=== PATIENT | male | born 1985 | race Caucasian/White ===

== ENCOUNTER → 2021-08-10 07:58 | Outpatient (CLI) | payer BC, SELFPAY ==
--- NOTE | 2021-08-11 05:42 | PFTCOMP_ITS ---
COMPLETE PULMONARY FUNCTION TEST INTERPRETATION Brief HPI: Patient is a 36 year old male, currently under the care of myself, who presents to [facility] for complete pulmonary function tests secondary to diagnosis of pulmonary nodule. Respiratory therapist reports good effort and reproducible results. Interpretation: Forced expiration spirometry shows a mild large airways obstructive ventilatory defect with an FEV1 of 88% predicted. There is a significant bronchodilator response in FEV1 by strict ATS criteria. Spirograms are of good quality and plateau slowly, indicating slowly emptying areas of the lungs. The respiratory flow volume loop shows decreased expiratory flow rates at all lung volumes consistent with airway obstruction. Lung volumes by body plethysmography show a decreased total lung capacity at 5.7 L, 78% predicted. All other lung volumes are within normal limits. Diffusion capacity by carbon monoxide is normal at 122% predicted. The airway resistance is elevated. No previous pulmonary function tests were available for review. Impression: Partially reversible mild mixed ventilatory defect with preserved diffusion capacity.
== END ==
PROVIDERS: PCP Nurse Practitioner Primary Care; Referring Provider Internal Medicine Critical Care Medicine; Visit Provider Internal Medicine Critical Care Medicine
DX: R91.1 Solitary pulmonary nodule (principal)
CPT/HCPCS: 94060; 94726; 94729

== ENCOUNTER → 2021-09-03 12:30 | Outpatient (CLI) | payer BC, SELFPAY ==
[2021-09-03 12:30] VITALS: PULSE 102; PULSE 106; PULSE 109; PULSE 84; PULSE 88; PULSE 98; O2SAT 97; O2SAT 98
--- NOTE | 2021-09-03 15:13 | PCM.PSN.6M ---
PSN 6 Minute Walk Test 6 Minute Walk Test 6 Minute Walk Test: 6 Minute Walk Test PSN:6-Minute Walk Test Start: 09/03/21 12:53 Freq: Status: Active Protocol: RESP.6MINW Document 09/03/21 12:30 [facility] (Rec: 09/03/21 12:56 [facility] [id number]) 6 Minute Walk Test Date Performed 09/03/21 Time Performed 12:30 Height 5 ft 11 in Weight: 108.862 kg Weight in Pounds 240.[address]: Dr Jeter Assistive device used: None Pre-test Oxygen Delivery Method Room Air Pulse Ox (%) 98 Pulse Rate (60-100 beats/min) 98 Dyspnea Deangelo Scale (0-10) 0 Exertion Deangelo Scale (6-20) 6 1st minute Oxygen Delivery Method Room Air Pulse Ox (%) 98 Pulse Rate (60-100 beats/min) 102 H 2nd minute Oxygen Delivery Method Room Air Pulse Ox (%) 98 Pulse Rate (60-100 beats/min) 106 H 3rd minute Oxygen Delivery Method Room Air Pulse Ox (%) 98 Pulse Rate (60-100 beats/min) 106 H 4th minute Oxygen Delivery Method Room Air Pulse Ox (%) 97 Pulse Rate (60-100 beats/min) 109 H 5th minute Oxygen Delivery Method Room Air Pulse Ox (%) 98 Pulse Rate (60-100 beats/min) 102 H 6th minute Oxygen Delivery Method Room Air Pulse Ox (%) 97 Pulse Rate (60-100 beats/min) 84 Dyspnea Deangelo Scale (0-10) 2 Exertion Deangelo Scale (6-20) 11 Post-test Oxygen Delivery Method Room Air Pulse Ox (%) 98 Pulse Rate (60-100 beats/min) 88 Full Laps Walked 22 Partial Lap, Number of Tiles Walked 19 Total Distance Walked (ft) 1317 Interpretation Interpretation: Patient was able to ambulate 1317 feet over the course of 6 minutes on room air with no assist devices or breaks. The patient experienced no significant desaturation, but did have a peak heart rate of 109 bpm. These findings are consistent with deconditioning. Recommendations Recommendations: No supplemental oxygen is indicated at this time.
== END ==
LOC: PSN 12:32
PROVIDERS: PCP Nurse Practitioner Primary Care; Referring Provider Internal Medicine Critical Care Medicine; Visit Provider Internal Medicine Critical Care Medicine
DX: R91.1 Solitary pulmonary nodule (principal)
CPT/HCPCS: 94618

== ENCOUNTER 2021-10-30 11:53 | Outpatient (CLI) | payer BC, SELFPAY ==
[2021-11-01 22:07] LABS: QNTFERON TB Mitogen Value > 10.00 IU/mL (.); QNTFERON TB Nil Value 0.04 IU/mL (.); QNTFERON TB1+ Ag Value 0.08 IU/mL (.); QNTFERON TB2+ Ag Value 0.06 IU/mL (.)
[2021-11-01 22:53] LABS: QNTIFERON TB Positive Criteria Negative (Negative)
== END 2021-10-30 23:59 | disposition home or self-care (01) ==
LOC: PAVLAB 11:54
PROVIDERS: PCP Nurse Practitioner Primary Care; Visit Provider Internal Medicine Critical Care Medicine
DX: R91.1 Solitary pulmonary nodule (principal)
CPT/HCPCS: 36415; 86480

== ENCOUNTER → 2023-03-25 | Outpatient (CLI) | payer BC, SELFPAY ==
--- NOTE | 2023-03-26 09:32 | PFT ---
INTRODUCTION: The patient is a 37-year-old male that presents for pulmonary function studies secondary to a diagnosis of lung nodule. Respiratory therapy reported good patient effort. Bronchodilators were used during testing. INTERPRETATION: Forced expiration spirometry demonstrates no evidence of a large airways obstructive ventilatory defect. There was no significant response to aerosolized bronchodilators. Spirograms are of good quality and plateau gradually indicating slow emptying of the lungs. Body plethysmography was performed and revealed lung volumes to be within normal limits. Diffusing capacity by single breath CO was also within normal limits. IMPRESSION: Grossly normal pulmonary function studies.
== END | disposition home or self-care (01) ==
LOC: CT 06:51
PROVIDERS: PCP Nurse Practitioner Primary Care; Referring Provider Internal Medicine Critical Care Medicine; Visit Provider Internal Medicine Critical Care Medicine
DX: M06.9 Rheumatoid arthritis, unspecified (principal)
CPT/HCPCS: 94060; 94726; 94729

== ENCOUNTER → 2023-05-20 | Outpatient (CLI) | payer BC, SELFPAY | END | disposition home or self-care (01) | LOC: LABSPEC 10:32 | PROVIDERS: PCP Nurse Practitioner Primary Care; Referring Provider Nurse Practitioner Family; Visit Provider Nurse Practitioner Family | DX: J02.9 Acute pharyngitis, unspecified (principal) | CPT/HCPCS: 87070 ==